=== PATIENT | male | born 1965 | race African-American/Black ===

== ENCOUNTER 2021-11-07 10:54 | Inpatient (IN) | payer OTHER ==
[2021-11-07 11:45] VITALS: BMI 21.6
[2021-11-07] MEDS ORDERED: BENZOCAINE/MENTHOL (CHLORASEPTIC ) LOZENGE MM PRN (11:47)
[2021-11-07] MEDS ORDERED: MAGNESIUM CITRATE 300 ML BOTTLE PO PRN (11:47)
[2021-11-07] MEDS ORDERED: NICOTINE 10 MG CARTRIDGE (INHALER) IH PRN (11:47)
[2021-11-07] MEDS ORDERED: ONDANSETRON *ODT* 4 MG TABLET SL PRN (11:47)
[2021-11-07] MEDS ORDERED: diazePAM 5 MG TABLET PO PRN (11:47)
[2021-11-07] MEDS ORDERED: METHOCARBAMOL 500 MG TABLET PO PRN (11:47)
[2021-11-07] MEDS ORDERED: ACETAMINOPHEN 325 MG TABLET (FP) PO PRN ×2 (11:47)
[2021-11-07] MEDS ORDERED: BISMUTH SUBSALICYLATE 524 MG/30 ML PO PRN (11:47)
[2021-11-07] MEDS ORDERED: IBUPROFEN 600 MG TABLET (FP) PO PRN (11:47)
[2021-11-07] MEDS ORDERED: MAG HYDROX/AL HYDROX/SIMETH 30 ML UNIT-DOSE CUP PO PRN (11:47)
[2021-11-07] MEDS ORDERED: MAGNESIUM HYDROX 2400MG/30ML ORAL SUSPENSION 30 ML CUP PO PRN (11:47)
[2021-11-07] MEDS ORDERED: IBUPROFEN 400 MG TABLET (FP) PO PRN (11:47)
[2021-11-07] MEDS ORDERED: DICYCLOMINE HCL 10 MG CAPSULE PO PRN (11:47)
[2021-11-07] MEDS: diazePAM 5 MG TABLET PO SCH ×3 (13:34→22:39)
[2021-11-07] MEDS: PRENATAL VITAMINS W/ FOLIC ACID TABLET (FP) PO SCH (13:34)
[2021-11-07] MEDS: hydrOXYzine PAMOATE 25 MG CAPSULE (FP) PO SCH ×3 (13:37→22:39)
[2021-11-07 15:29] LABS: HEMATOCRIT 39.9 % (35.4-49); HEMOGLOBIN 13.3 GM/dL (11.7-16.9); MCH 32.7 pg (25.7-33.7); MCHC 33.4 g/dl (32.0-35.9); MEAN PLT VOLUME 7.6 fl (7.5-11.1); PLATELET COUNT 325 10^3/uL (134-434); RBC 4.07 M/mm3 (4.00-5.60); RDW 13.6 % (11.9-15.9); WHITE BLOOD COUNT 6.7 K/mm3 (4.0-10.0)
[2021-11-07 15:33] LABS: CALCIUM 9.2 mg/dL (8.5-10.1)
[2021-11-07 15:34] LABS: ALBUMIN 4.1 g/dl (3.4-5.0); BLOOD UREA NITROGEN 14.9 mg/dL (7-18)
[2021-11-07 15:37] LABS: CREATININE 1.3 mg/dL (0.55-1.3)
[2021-11-07 15:38] LABS: BILIRUBIN,TOTAL 0.3 mg/dL (0.2-1); TOT PROT 7.8 g/dl (6.4-8.2)
[2021-11-07] MEDS: THIAMINE HCL 100 MG TABLET (FP) PO SCH (22:40)
[2021-11-07] MEDS: MELATONIN 5 MG TABLETS PO SCH (22:40)
[2021-11-08] MEDS: diazePAM 5 MG TABLET PO SCH ×4 (08:05→22:39)
[2021-11-08] MEDS: hydrOXYzine PAMOATE 25 MG CAPSULE (FP) PO SCH ×5 (08:06→22:39)
[2021-11-08] MEDS: PRENATAL VITAMINS W/ FOLIC ACID TABLET (FP) PO SCH (10:15)
[2021-11-08] MEDS ORDERED: cloNIDine HCL 0.1 MG TABLET PO ONE (19:52)
[2021-11-08] MEDS: THIAMINE HCL 100 MG TABLET (FP) PO SCH (22:39)
[2021-11-08] MEDS: MELATONIN 5 MG TABLETS PO SCH (22:39)
[2021-11-09] MEDS: diazePAM 5 MG TABLET PO SCH ×3 (05:16→22:06)
[2021-11-09] MEDS: hydrOXYzine PAMOATE 25 MG CAPSULE (FP) PO SCH ×5 (05:16→22:07)
[2021-11-09] MEDS ORDERED: amLODIPine BESYLATE 5 MG TABLET (FP) PO SCH (10:00)
[2021-11-09] MEDS: PRENATAL VITAMINS W/ FOLIC ACID TABLET (FP) PO SCH (10:28)
[2021-11-09] MEDS: PATIENT'S OWN MEDICATION (NON-FORMULARY) (Losartan Potassium [Losartan Potassium] 100 MG T PO SCH ×2 (12:39→14:31)
[2021-11-09] MEDS: LOSARTAN POTASSIUM 50 MG TABLET PO SCH (14:18)
[2021-11-09] MEDS: EMTRICITABINE 200MG/TENOFOVIR 300MG PO SCH (14:31)
[2021-11-09] MEDS: THIAMINE HCL 100 MG TABLET (FP) PO SCH (22:07)
[2021-11-09] MEDS: MELATONIN 5 MG TABLETS PO SCH (22:58)
[2021-11-10] MEDS: DARUNAVIR ETHANOLATE PO SCH ×2 (00:19→13:30)
[2021-11-10] MEDS: diazePAM 5 MG TABLET PO SCH ×3 (05:38→17:43)
[2021-11-10] MEDS: hydrOXYzine PAMOATE 25 MG CAPSULE (FP) PO SCH ×5 (05:38→22:26)
[2021-11-10] MEDS ORDERED: DARUNAVIR 800 MG/COBICISTAT 150MG TABLET PO SCH (10:00)
[2021-11-10] MEDS: PRENATAL VITAMINS W/ FOLIC ACID TABLET (FP) PO SCH (10:14)
[2021-11-10] MEDS: LOSARTAN POTASSIUM 50 MG TABLET PO SCH (10:14)
[2021-11-10] MEDS: EMTRICITABINE PO SCH ×3 (11:43→13:30)
[2021-11-10] MEDS: TENOFOVIR 300 MG PO SCH (11:43)
[2021-11-10] MEDS: FAMOTIDINE 20 MG TABLET PO SCH ×2 (11:44→11:48)
[2021-11-10] MEDS: PATIENT'S OWN MEDICATION (NON-FORMULARY) (Dolutegravir Sodium [Tivicay] 50 MG) PO SCH (12:03)
[2021-11-10] MEDS: PATIENT'S OWN MEDICATION (NON-FORMULARY) (Dolutegravir Sodium [Tivicay] 50 MG Tablet) PO SCH ×2 (13:24→13:28)
[2021-11-10] MEDS: EMTRICITABINE 200MG/TENOFOVIR 300MG PO SCH (13:31)
[2021-11-10] MEDS: LOPERAMIDE HCL 2 MG CAPSULE PO PRN (18:32)
[2021-11-10] MEDS: MELATONIN 5 MG TABLETS PO SCH (22:26)
[2021-11-10] MEDS: ROSUVASTATIN CA 20 MG TABLET PO SCH (22:26)
[2021-11-10] MEDS: THIAMINE HCL 100 MG TABLET (FP) PO SCH (22:26)
[2021-11-11] MEDS: ROSUVASTATIN CA 20 MG TABLET PO SCH (00:20)
[2021-11-11] MEDS ORDERED: diazePAM 5 MG TABLET PO ONE (06:00)
[2021-11-11 06:07] VITALS: TEMP 98.2
[2021-11-11] MEDS: LOPERAMIDE HCL 2 MG CAPSULE PO PRN (06:07)
[2021-11-11] MEDS: hydrOXYzine PAMOATE 25 MG CAPSULE (FP) PO SCH ×2 (06:07→09:15)
[2021-11-11 08:43] VITALS: BP 151/89; PULSE 99; RESP 16
[2021-11-11] MEDS: LOSARTAN POTASSIUM 50 MG TABLET PO SCH (09:13)
[2021-11-11] MEDS: FAMOTIDINE 20 MG TABLET PO SCH (09:13)
[2021-11-11] MEDS: TENOFOVIR 300 MG PO SCH (09:14)
[2021-11-11] MEDS: EMTRICITABINE PO SCH (09:14)
[2021-11-11] MEDS: PRENATAL VITAMINS W/ FOLIC ACID TABLET (FP) PO SCH (09:15)
[2021-11-11] MEDS: PATIENT'S OWN MEDICATION (NON-FORMULARY) (Dolutegravir Sodium [Tivicay] 50 MG) PO SCH (09:15)
== END 2021-11-11 09:40 | disposition home or self-care (01) | DRG 897 ==
LOC: YASAS 10:54 → Y3N 12:10
PROVIDERS: ADMIT Allergy & Immunology; ATTEND Surgery
PROC: HZ2ZZZZ Detoxification Services for Substance Abuse Treatment (ICD-10-PCS; principal; 2021-11-07)
DX: F10.230 Alcohol dependence with withdrawal, uncomplicated (principal); F15.20 Other stimulant dependence, uncomplicated; B20 Human immunodeficiency virus [HIV] disease; F19.230 Other psychoactive substance dependence with withdrawal, uncomplicated; F12.20 Cannabis dependence, uncomplicated; F32.A Depression, unspecified; I10 Essential (primary) hypertension; Z87.891 Personal history of nicotine dependence; Z86.19 Personal history of other infectious and parasitic diseases; Z86.11 Personal history of tuberculosis
CPT/HCPCS: 36415; 71046-TC-FY; 80053; 85027; 86593; 86780; 93005; 93010; C9803-CS; J0735; U0003; U0005

== ENCOUNTER 2022-09-02 11:49 | Inpatient (IN) | payer OTHER ==
[2022-09-02 12:18] VITALS: BMI 20.2
[2022-09-02] MEDS ORDERED: COLLOIDAL OATMEAL 1 BAR EACH TP PRN (13:24)
[2022-09-02] MEDS ORDERED: IBUPROFEN 600 MG TABLET (FP) PO PRN (13:24)
[2022-09-02] MEDS ORDERED: NICOTINE 10 MG CARTRIDGE (INHALER) IH PRN (13:24)
[2022-09-02] MEDS ORDERED: LOPERAMIDE HCL 2 MG CAPSULE PO PRN (13:24)
[2022-09-02] MEDS ORDERED: NALOXONE HCL 0.4 MG/ML VIAL IM PRN (13:24)
[2022-09-02] MEDS ORDERED: guaiFENesin 600 MG TABLET.ER (FP) PO PRN (13:24)
[2022-09-02] MEDS ORDERED: DICYCLOMINE HCL 10 MG CAPSULE PO PRN (13:24)
[2022-09-02] MEDS ORDERED: ONDANSETRON *ODT* 4 MG TABLET SL PRN (13:24)
[2022-09-02] MEDS ORDERED: AMMONIUM LACTATE 12% LOTION 225 GM BOTTLE TP PRN (13:24)
[2022-09-02] MEDS ORDERED: BENZONATATE 200 MG CAPSULE PO PRN (13:24)
[2022-09-02] MEDS ORDERED: ACETAMINOPHEN 325 MG TABLET (FP) PO PRN (13:24)
[2022-09-02] MEDS ORDERED: MAG HYDROX/AL HYDROX/SIMETH 30 ML UNIT-DOSE CUP PO PRN (13:24)
[2022-09-02] MEDS ORDERED: NALOXONE HCL (KLOXXADO) 8 MG SPRAY NS PRN (13:24)
[2022-09-02] MEDS ORDERED: IBUPROFEN 400 MG TABLET (FP) PO PRN (13:24)
[2022-09-02] MEDS ORDERED: BISMUTH SUBSALICYLATE 524 MG/30 ML PO PRN (13:24)
[2022-09-02] MEDS ORDERED: POLYETHYLENE GLYCOL (HEALTHYLAX) 3350 17 GM PACKET PO PRN (13:24)
[2022-09-02] MEDS ORDERED: MAGNESIUM HYDROX 2400MG/30ML ORAL SUSPENSION 30 ML CUP PO PRN (13:24)
[2022-09-02] MEDS ORDERED: BENZOCAINE/MENTHOL (CHLORASEPTIC ) LOZENGE MM PRN (13:24)
[2022-09-02] MEDS ORDERED: TUBERCULIN PPD 5 TU/0.1ML VIAL ID ONE ×2 (13:26→15:17)
[2022-09-02] MEDS: DOLUTEGRAVIR SODIUM 50 MG TABLET (NON-FORMULARY) PO SCH (15:14)
[2022-09-02] MEDS: LOSARTAN POTASSIUM 50 MG TABLET PO SCH (15:15)
[2022-09-02] MEDS: diazePAM 5 MG TABLET PO SCH ×2 (17:59→22:41)
[2022-09-02] MEDS: CYPROHEPTADINE HCL 4 MG TABLET PO SCH (21:07)
[2022-09-02] MEDS: THIAMINE HCL 100 MG TABLET (FP) PO SCH (22:37)
[2022-09-02] MEDS: FAMOTIDINE 20 MG TABLET PO SCH (22:37)
[2022-09-02] MEDS: ROSUVASTATIN CA 20 MG TABLET PO SCH (22:37)
[2022-09-02] MEDS: DARUNAVIR 800 MG/COBICISTAT 150MG TABLET PO SCH (22:38)
[2022-09-02] MEDS: EMTRICITABINE 200MG/TENOFOVIR 300MG PO SCH (22:39)
[2022-09-02] MEDS: MELATONIN 5 MG TABLETS PO SCH (23:18)
[2022-09-03] MEDS: diazePAM 5 MG TABLET PO SCH ×4 (05:56→22:47)
[2022-09-03] MEDS: CYPROHEPTADINE HCL 4 MG TABLET PO SCH (06:21)
[2022-09-03] MEDS: LOSARTAN POTASSIUM 50 MG TABLET PO SCH (10:21)
[2022-09-03] MEDS: PRENATAL VITAMINS W/ FOLIC ACID TABLET (FP) PO SCH (10:21)
[2022-09-03] MEDS: METHOCARBAMOL 500 MG TABLET PO PRN (10:22)
[2022-09-03] MEDS: DOLUTEGRAVIR SODIUM 50 MG TABLET (NON-FORMULARY) PO SCH (10:23)
[2022-09-03 11:45] LABS: HEMATOCRIT 39.8 % (35.4-49); HEMOGLOBIN 13.8 GM/dL (11.7-16.9); MCH 33.2 pg (25.7-33.7); MCHC 34.7 g/dl (32.0-35.9); MEAN CELL VOLUME 95.8 fl (80-96); MEAN PLT VOLUME 7.7 fl (7.5-11.1); PLATELET COUNT 263 10^3/uL (134-434); POTASSIUM 3.8 mmol/L (3.5-5.1); RBC 4.15 M/mm3 (4.00-5.60); RDW 14.7 % (11.9-15.9); WHITE BLOOD COUNT 7.4 K/mm3 (4.0-10.0)
[2022-09-03 11:48] LABS: CALCIUM 9.1 mg/dL (8.5-10.1)
[2022-09-03 11:49] LABS: ALBUMIN 3.6 g/dl (3.4-5.0)
[2022-09-03 11:52] LABS: CREATININE 1.2 mg/dL (0.55-1.3)
[2022-09-03 11:54] LABS: BILIRUBIN,TOTAL 0.4 mg/dL (0.2-1); TOT PROT 7.4 g/dl (6.4-8.2)
[2022-09-03] MEDS: EMTRICITABINE 200MG/TENOFOVIR 300MG PO SCH (22:47)
[2022-09-03] MEDS: THIAMINE HCL 100 MG TABLET (FP) PO SCH (22:47)
[2022-09-03] MEDS: MELATONIN 5 MG TABLETS PO SCH (22:47)
[2022-09-03] MEDS: FAMOTIDINE 20 MG TABLET PO SCH (22:47)
[2022-09-03] MEDS: ROSUVASTATIN CA 20 MG TABLET PO SCH (22:47)
[2022-09-03] MEDS: DARUNAVIR 800 MG/COBICISTAT 150MG TABLET PO SCH (22:47)
[2022-09-04] MEDS: diazePAM 5 MG TABLET PO SCH ×3 (05:22→22:28)
[2022-09-04] MEDS: CYPROHEPTADINE HCL 4 MG TABLET PO SCH (06:18)
[2022-09-04] MEDS: PRENATAL VITAMINS W/ FOLIC ACID TABLET (FP) PO SCH (09:55)
[2022-09-04] MEDS: DOLUTEGRAVIR SODIUM 50 MG TABLET (NON-FORMULARY) PO SCH (09:56)
[2022-09-04] MEDS: METHOCARBAMOL 500 MG TABLET PO PRN (09:56)
[2022-09-04] MEDS: LOSARTAN POTASSIUM 50 MG TABLET PO SCH (09:57)
[2022-09-04] MEDS ORDERED: DARUNAVIR 800 MG/COBICISTAT 150MG TABLET PO SCH (10:48)
[2022-09-04] MEDS: LACTULOSE 20 GM/30 ML UDC (FOR ORAL USE ONLY) PO SCH ×2 (13:24→22:30)
[2022-09-04] MEDS: FAMOTIDINE 20 MG TABLET PO SCH (22:28)
[2022-09-04] MEDS: MELATONIN 5 MG TABLETS PO SCH (22:28)
[2022-09-04] MEDS: THIAMINE HCL 100 MG TABLET (FP) PO SCH (22:28)
[2022-09-04] MEDS: EMTRICITABINE 200MG/TENOFOVIR 300MG PO SCH (22:29)
[2022-09-04] MEDS: ROSUVASTATIN CA 20 MG TABLET PO SCH (22:29)
[2022-09-04] MEDS: DARUNAVIR 800 MG/COBICISTAT 150MG TABLET PO SCH (22:30)
[2022-09-05] MEDS: LACTULOSE 20 GM/30 ML UDC (FOR ORAL USE ONLY) PO SCH ×3 (05:30→21:55)
[2022-09-05] MEDS: diazePAM 5 MG TABLET PO SCH ×2 (05:31→18:16)
[2022-09-05] MEDS: CYPROHEPTADINE HCL 4 MG TABLET PO SCH (06:55)
[2022-09-05] MEDS: PRENATAL VITAMINS W/ FOLIC ACID TABLET (FP) PO SCH (10:46)
[2022-09-05] MEDS: DOLUTEGRAVIR SODIUM 50 MG TABLET (NON-FORMULARY) PO SCH (10:48)
[2022-09-05] MEDS: LOSARTAN POTASSIUM 50 MG TABLET PO SCH (12:33)
[2022-09-05] MEDS: THIAMINE HCL 100 MG TABLET (FP) PO SCH (21:55)
[2022-09-05] MEDS: MELATONIN 5 MG TABLETS PO SCH (21:55)
[2022-09-05] MEDS: FAMOTIDINE 20 MG TABLET PO SCH (21:55)
[2022-09-05] MEDS: ROSUVASTATIN CA 20 MG TABLET PO SCH (21:55)
[2022-09-05] MEDS: EMTRICITABINE 200MG/TENOFOVIR 300MG PO SCH (21:56)
[2022-09-05] MEDS: DARUNAVIR 800 MG/COBICISTAT 150MG TABLET PO SCH (21:57)
[2022-09-06] MEDS: LACTULOSE 20 GM/30 ML UDC (FOR ORAL USE ONLY) PO SCH (05:59)
[2022-09-06] MEDS: CYPROHEPTADINE HCL 4 MG TABLET PO SCH (05:59)
[2022-09-06] MEDS ORDERED: diazePAM 5 MG TABLET PO ONE (06:00)
[2022-09-06 06:19] VITALS: RESP 16
[2022-09-06 09:22] VITALS: BP 136/96; PULSE 104; TEMP 98.2
[2022-09-06] MEDS: PRENATAL VITAMINS W/ FOLIC ACID TABLET (FP) PO SCH (11:10)
[2022-09-06] MEDS: LOSARTAN POTASSIUM 50 MG TABLET PO SCH (11:10)
[2022-09-06] MEDS: DOLUTEGRAVIR SODIUM 50 MG TABLET (NON-FORMULARY) PO SCH (11:10)
== END 2022-09-06 09:37 | disposition home or self-care (01) | DRG 897 ==
LOC: YASAS 11:49 → Y6N 13:03
PROVIDERS: ADMIT Allergy & Immunology; ATTEND Surgery
PROC: HZ2ZZZZ Detoxification Services for Substance Abuse Treatment (ICD-10-PCS; principal; 2022-09-02)
DX: F10.230 Alcohol dependence with withdrawal, uncomplicated (principal); F19.282 Other psychoactive substance dependence with psychoactive substance-induced sleep disorder; B20 Human immunodeficiency virus [HIV] disease; F12.20 Cannabis dependence, uncomplicated; F32.9 Major depressive disorder, single episode, unspecified; E78.5 Hyperlipidemia, unspecified; I10 Essential (primary) hypertension; R79.89 Other specified abnormal findings of blood chemistry; Z62.810 Personal history of physical and sexual abuse in childhood; Z91.410 Personal history of adult physical and sexual abuse; Z86.19 Personal history of other infectious and parasitic diseases; Z87.891 Personal history of nicotine dependence
CPT/HCPCS: 36415; 71046-TC-FY; 80053; 82140; 85027; 86593; 86780; 87811; C9803-CS; U0003; U0005